=== PATIENT | female | born 1975 | race Caucasian/White ===

== ENCOUNTER 2024-09-13 12:21 | Emergency (ER) | payer BC, SELFPAY ==
[2024-09-13 13:01] VITALS: BP 147/84; PULSE 90; RESP 28; TEMP 36.2; O2SAT 99; BMI 34.3
--- NOTE | 2024-09-13 13:47 | ED.GENADULT ---
HPI - General Adult General Date Seen: 09/13/24 Chief complaint: Shortness of Breath/Dyspnea Stated complaint: Pneumonia Time Seen by Provider: 09/13/24 13:27 Source: patient History of Present Illness HPI narrative: Patient is a 48-year-old woman. She is from [place], down here visiting her mom for the holidays. She tells me that she has been hospitalized twice in the last quarter of 2023, once in June and once at the end of July. She was diagnosed with pneumonia both times, she says she was hospitalized for 10 days the 1st time in 7 days the 2nd time and maintained on antibiotics. She was discharged on oxygen and has remained on oxygen since then. Her O2 sats are in the mid 80s without it. She says that they told her she may have permanent scarring and they were doing some additional testing. Over the past several days, she has felt weak and shaky, she has had some nausea and nonbloody diarrhea. She has not had a cough or shortness of breath. She has not had chest pain. She has not had a documented fever although she has felt chilled. Related Data Home Medications ?Medication ?Instructions ?Recorded ?Confirmed acetaminophen 500 mg tablet mg PO 09/13/24 gabapentin 100 mg capsule mg PO 09/13/24 gabapentin 300 mg capsule mg PO 09/13/24 hydromorphone 2 mg tablet 2 mg PO QID 09/13/24 09/13/24 hydromorphone 4 mg tablet mg PO 09/13/24 hydromorphone 8 mg tablet mg PO 09/13/24 multivitamin-iron sulfate 15 1 tab PO DAILY 09/13/24 09/13/24 mg-folic acid 400 mcg tablet (Tab-A-Sanchez Multivitamin w-iron) olanzapine 10 mg tablet 10 mg PO QPM 09/13/24 09/13/24 potassium chloride 20 mEq 20 meq PO DAILY 09/13/24 09/13/24 tablet,extended release(part/cryst) pregabalin 200 mg capsule 200 mg PO 3XD 09/13/24 09/13/24 quetiapine 200 mg tablet 200 mg PO QPM 09/13/24 09/13/24 trazodone 50 mg tablet PO 09/13/24 venlafaxine 150 mg 150 mg PO DAILY 12/26/24 12/26/24 capsule,extended release 24 hr venlafaxine 37.5 mg 37.5 mg PO DAILY 09/13/24 09/13/24 capsule,extended release 24 hr Review of Systems Status of ROS: Reports: 10 or more systems reviewed and unremarkable except as noted in History and below Exam Narrative: Exam Narrative: Vital signs reviewed In general, alert, nontoxic but H woman. She is breathing comfortably on oxygen. Head: Normocephalic, atraumatic. Eyes: Sclera clear. Pupils equal and reactive. ENT: Mucous membranes slightly dry. Neck: Supple without adenopathy. Heart: Regular rate and rhythm without murmur. Lungs: Clear. No increased work of breathing, crackles or wheezes. Abdomen: Soft, nontender to palpation. Extremities: Well perfused, pulses intact. No significant edema. Neurologic: Alert, conversant. Speech fluent, face symmetric. Moves all extremities equally. Skin: Warm, dry well perfused. Affect: Normal. Const: Vital Signs, click to edit/add: Vital Signs - 24 hr 09/13/24 13:01 09/13/24 16:23 Temperature 97.2 F L Pulse Rate [Pulse Oximeter] 90 86 Respiratory Rate 28 H 20 Blood Pressure [Ri ght Upper Arm] 147/84 H 131/77 Pulse Oximetry 99 100 Oxygen Delivery Me thod Nasal Cannula Nasal Cannula Oxygen Flow Rate 2 Documenting provider has reviewed patient's vital signs: yes Course Course ED Course: Will go ahead and give her some normal saline IV as well as some Zofran. Will check electrolytes, CBC, lactate, thyroid and liver tests. Will do a chest x-ray as well though she does not seem to have significant respiratory symptoms. My suspicion for recurrent pneumonia is relatively low. She has not had to go up on her oxygen needs. COVID, influenza and RSV swab pending as well. Oral swab was negative. Vital signs remain normal. She was given some fluids, labs are notable for a mildly elevated white blood cell count of 12.5, fairly nonspecific. Hemoglobin is normal, platelet count of [id number]. Her electrolytes were normal, potassium was 3.6, she is supplementing that at home. Blood sugar was 101. Lactate was 1.5. Magnesium normal, liver functions normal, TSH was elevated at 6.2, free T4 is pending. I did a chest x-ray which by my review looked unremarkable, final radiology read negative. She did request medication for her pain from her prior rib fractures, she says that she takes 4 mg of Dilaudid orally for this. She does have multiple rib fractures noted on x-ray. I gave her her 4 mg of Dilaudid orally here. We talked about possible C diff, she did not have diarrhea while here but has had that at home, certainly is at risk with multiple doses of antibiotics recently. She does not have abdominal pain, bloody stools, fever. She would like to check that when she gets back up to g ray which as long as she is not changing clinically I think is reasonable. Discussed that if she is getting worse she should come back so that we can hopefully check that. I did check the [employer], she filled 4 mg Dilaudid tablets as well as 2 mg tablets and 8 mg tablets, all from the same provider, in the 1st week of August. No prescriptions since then. She says she is not out of her Dilaudid, shakiness and GI symptoms could be attributable to opioid withdrawal if this is not accurate. However, at this time, she feels reassured with labs an x-ray, would like to go home. Understands reasons to return and will follow-up when she gets back to [place]. Vital Signs Vital signs: Initial Vital Signs Temperature 97.2 F L 09/13/24 13:01 Temperature Source Temporal Artery Scan 09/13/24 13:01 Pulse Rate 90 09/13/24 13:01 Respiratory Rate 28 H 09/13/24 13:01 Blood Pressure 147/84 H 09/13/24 13:01 Blood Pressure Mean 105 09/13/24 13:01 Blood Pressure Position Sitting 09/13/24 13:01 Pulse Oximetry 99 09/13/24 13:01 Oxygen Delivery Method Nasal Cannula 09/13/24 13:01 Vital Signs Temperature 97.2 F L 09/13/24 13:01 Pulse Rate 90 09/13/24 13:01 Respiratory Rate 28 H 09/13/24 13:01 Blood Pressure 147/84 H 09/13/24 13:01 Pulse Oximetry 99 09/13/24 13:01 Oxygen Delivery Method Nasal Cannula 09/13/24 13:01 Temperature 97.2 F L 09/13/24 13:01 Pulse Rate 86 09/13/24 16:23 Respiratory Rate 20 09/13/24 16:23 Blood Pressure 131/77 09/13/24 16:23 Pulse Oximetry 100 09/13/24 16:23 Oxygen Delivery Method Nasal Cannula 09/13/24 16:23 Oxygen Flow Rate 2 09/13/24 16:23 Medications Administered Medications: Discontinued Medications Generic Name Dose Route Start Last Admin Trade Name Alexq PRN Reason Stop Dose Admin Hydromorphone HCl 4 mg 09/13/24 16:11 09/13/24 16:16 Hydromorphone 2 Mg Tablet PO 09/13/24 16:12 4 mg ONCE ONE Administration Sodium Chloride 1,000 mls @ 1,000 mls/hr 09/13/24 14:00 09/13/24 16:45 0.9 % Sodium Chloride 1000 Ml IV 09/13/24 14:59 Infused .Q1H INGRID Infusion Ondansetron HCl 4 mg 09/13/24 13:50 09/13/24 15:17 Ondansetron 2 Mg/Ml Inj IVP 09/13/24 13:51 Not Given ONCE ONE Ondansetron HCl 4 mg 09/13/24 15:13 09/13/24 15:18 Ondansetron Odt 4 Mg Tab PO 09/13/24 15:14 4 mg ONCE ONE Administration Medical Decision Making Lab Data Labs: Lab Results 09/13/24 09/13/24 Range/Units 13:51 15:30 WBC 12.45 H (4.50-11.00) K/uL RBC 5.34 H (4.00-5.20) m/uL Hgb 15.1 (12.0-16.0) gm/dL Hct 45.0 (33.0-51.0) % MCV 84 (80-100) fL MCH 28 (26-34) pg MCHC 34 (32-36) gm/dL RDW Coeff of Lorenzo 14.3 (11.5-15.5) % Plt Count 463 H (140-440) K/uL Neut % (Auto) 71.2 (42.0-72.0) % Lymph % (Auto) 21.8 (20-44) % Crowley % (Auto) 6.2 (0.0-11.0) % Eos % (Auto) 0.4 (0.0-7.0) % Baso % (Auto) 0.2 (0.0-3.0) % Neut # (Auto) 8.90 H (1.7-7.0) K/uL Lymph # (Auto) 2.70 (0.90-2.90) K/uL Crowley # (Auto) 0.80 (0.00-0.90) K/UL Eos # (Auto) 0.00 (0.00-0.50) K/uL Baso # (Auto) 0.00 (0.00-0.30) K/uL Abs Immat Gran (auto) 0.00 (0.00-0.30) K/uL Imm/Tot Granulo (auto) 0.2 % Sodium 140 (135-149) mmol/L Potassium 3.6 (3.6-5.1) mmol/L Chloride 103 (96-114) mmol/L Carbon Dioxide 24 (20-32) mmol/L Anion Gap 13 (7-15) mEq/L BUN 15 (5-24) mg/dL Creatinine 0.6 (0.5-1.5) mg/dL Estimated Creat Clear 97.94 Estimated GFR 110 ml/min Glucose 101 (60-115) mg/dL Lactate 1.5 (0.5-1.9) mmol/L Calcium 10.2 (8.4-10.6) mg/dL Magnesium 2.2 (1.5-2.6) mg/dL Total Bilirubin 0.7 (0.1-1.5) mg/dL Direct Bilirubin 0.4 (0.0-0.5) mg/dL AST 20 (12-35) U/L ALT 21 (4-35) U/L Alkaline Phosphatase 102 (40-150) U/L C-Reactive Protein 0.7 (0.5-1.0) mg/dL Total Protein 8.6 H (6.0-8.3) g/dL Albumin 4.8 (3.3-5.0) g/dL TSH 6.220 H (0.270-4.200) uIU/mL SARS-CoV-2 (PCR) Negative SARS-CoV-2 (Negative) Influenza Type A (PCR) Negative PCR FLU A (Negative) Influenza Type B (PCR) Negative PCR FLU B (Negative) RSV (PCR) Negative PCR RSV (Negative) Imaging Data Chest x-ray: Attestation: I have reviewed the pertinent imaging results. Radiologist's impression: Patient: STEPHANIE JUNG Facility: [facility] Site . Site : [id number] Study: XRay-Chest 2v-09/13/2024 2:13:13 PM Ordering Physician: Giovanna Edmonds Final Report: INDICATION: Weakness. Recent pneumonia. COMPARISON: 10/06/2020 TECHNIQUE: Two radiographic view(s) of the chest. FINDINGS: No pleural effusion. No pneumothorax. No definite focal pulmonary consolidation. Normal heart size. There are osseous degenerative changes. Old left posterior 5th rib fracture again noted. Subacute left 6th and probable subacute left 7th rib fracture with callus formation. Subacute fractures of the right lateral 6th and 7th ribs with callus formation. IMPRESSION: No acute thoracic findings. Subacute appearing bilateral rib fractures. Dictated by Sixto Rooney MD @ 09/13/2024 2:26:20 PM Discharge Plan Discharge Clinical Impression: Weakness Patient Disposition: Home, Self-Care Condition: Stable Instructions: Weakness (ED) Additional Instructions: Follow-up with your primary doctor on return home as discussed. If you have worsening symptoms, develops high fevers, vomiting, unusual rashes, bloody stools, significant abdominal pain, you should return. We did not test today for C diff, which can cause diarrhea particularly after being on antibiotics. For worsening GI symptoms he should return so that we can test for this. Otherwise, consider testing when you get home if diarrhea persists. Prescriptions: No Action venlafaxine 37.5 mg capsule,extended release 24hr 37.5 mg PO DAILY trazodone 50 mg tablet PO hydromorphone 8 mg tablet PO quetiapine 200 mg tablet 200 mg PO QPM venlafaxine 150 mg capsule,extended release 24hr 150 mg PO DAILY olanzapine 10 mg tablet 10 mg PO QPM acetaminophen 500 mg tablet PO hydromorphone 2 mg tablet 2 mg PO QID potassium chloride 20 mEq tablet,ER particles/crystals 20 meq PO DAILY gabapentin 300 mg capsule PO gabapentin 100 mg capsule PO hydromorphone 4 mg tablet PO pregabalin 200 mg capsule 200 mg PO 3XD Tab-A-Sanchez Multivitamin w-iron 15 mg iron- 400 mcg tablet 1 tab PO DAILY Follow Up/Referrals: Chris Winter MD [Referring] - Stand Alone Forms: My[facility] Info Instructions
--- NOTE | 2024-09-13 13:50 | CRLHL7_ITS ---
For Patients: As a result of the Cures Act, medical imaging exams and procedure reports are released immediately into your electronic medical record. You may view this report before your referring provider. If you have questions, please contact your health care provider. INDICATION: Weakness. Recent pneumonia. COMPARISON: 10/06/2020 TECHNIQUE: Two radiographic view(s) of the chest. FINDINGS: No pleural effusion. No pneumothorax. No definite focal pulmonary consolidation. Normal heart size. There are osseous degenerative changes. Old left posterior 5th rib fracture again noted. Subacute left 6th and probable subacute left 7th rib fracture with callus formation. Subacute fractures of the right lateral 6th and 7th ribs with callus formation. IMPRESSION: No acute thoracic findings. Subacute appearing bilateral rib fractures. Dictated by Sixto Rooney MD @ 09/13/2024 2:26:20 PM (Electronically Signed)
[2024-09-13 15:10] LABS: PCR FLU A Negative PCR FLU A (Negative); PCR FLU B Negative PCR FLU B (Negative); PCR RSV Negative PCR RSV (Negative); SARS PCR* Negative SARS-CoV-2 (Negative)
[2024-09-13] MEDS: ONDANSETRON ODT 4 MG TAB PO (15:18)
[2024-09-13 15:42] LABS: Lactate Sepsis w/Reflex* 1.5 mmol/L (0.5-1.9)
[2024-09-13] MEDS: 0.9 % SODIUM CHLORIDE 1000 ml 1,000 ML IV (15:43)
[2024-09-13 15:47] LABS: Basophils Percent Auto 0.2 % (0.0-3.0); Eosinophils Percent Auto 0.4 % (0.0-7.0); Hemoglobin* 15.1 gm/dL (12.0-16.0); Immature Granulocytes Pct Auto 0.2 %; Lymphocytes Percent Auto 21.8 % (20-44); Mean Corpuscular HGB Conc 34 gm/dL (32-36); Mean Corpuscular Hemoglobin 28 pg (26-34); Mean Corpuscular Volume 84 fL (80-100); Monocytes Percent Auto 6.2 % (0.0-11.0); Neutrophils Percent Auto 71.2 % (42.0-72.0); Platelet Count* 463 K/uL (140-440); RDW Coefficient of Variation % 14.3 % (11.5-15.5); Red Blood Count 5.34 m/uL (4.00-5.20); White Blood Count* 12.45 K/uL (4.50-11.00)
[2024-09-13 15:53] LABS: Slide Review Reflex No
[2024-09-13 16:04] LABS: Albumin* 4.8 g/dL (3.3-5.0); Chloride* 103 mmol/L (96-114)
[2024-09-13 16:05] LABS: Potassium* 3.6 mmol/L (3.6-5.1); Sodium* 140 mmol/L (135-149)
[2024-09-13 16:07] LABS: Anion Gap 13 mEq/L (7-15); Aspartate Amino Transferase* 20 U/L (12-35); Bilirubin Direct* 0.4 mg/dL (0.0-0.5); Bilirubin Total* 0.7 mg/dL (0.1-1.5); Carbon Dioxide* 24 mmol/L (20-32); Creatinine* 0.6 mg/dL (0.5-1.5); Est. Creatinine Clearance* 97.94; Estimated Glomerular Filt Rate 110 ml/min; Total Protein* 8.6 g/dL (6.0-8.3)
[2024-09-13 16:08] LABS: Alanine Aminotransferase* 21 U/L (4-35); Alkaline Phosphatase* 102 U/L (40-150); Blood Urea Nitrogen* 15 mg/dL (5-24); Calcium* 10.2 mg/dL (8.4-10.6); Glucose* 101 mg/dL (60-115); Magnesium* 2.2 mg/dL (1.5-2.6)
[2024-09-13 16:10] LABS: C Reactive Protein* 0.7 mg/dL (0.5-1.0)
[2024-09-13] MEDS: HYDROmorphone 2 MG TABLET 4 MG PO (16:16)
[2024-09-13 16:23] VITALS: BP 131/77; PULSE 86; RESP 20; O2SAT 100
[2024-09-13 17:34] LABS: Free T4 Free Thyroxine* 1.24 ng/dL (0.70-1.85)
== END 2024-09-13 16:55 | disposition home or self-care (01) ==
PROVIDERS: Emergency Provider Emergency Medicine
DX: R53.1 Weakness (principal)
CPT/HCPCS: 36415; 71046; 80048; 80076; 83605; 83735; 84439; 84443; 85025; 86140; 87631; 96361; 96374; 96375; 99284; A9270; J7030